=== PATIENT | female | born 1935 | race Hispanic/Latino ===

== ENCOUNTER 2018-10-17 14:19 | Inpatient (IN) | payer MEDICARE ==
--- NOTE | 2018-10-17 14:33 | Event Note ---
ED Screening Note ED Screening Note: pt presents with elevated BP pt states that her right eye has been closed for two weeks, she is unable to o pen it, she states that she just saw her PCP today pt states her head feels heavy, double vision PMHx of HTN, takes carvediolol and lisinopril took her medications this morning no CP, no SOB This initial assessment/diagnostic orders/clinical plan/treatment(s) is/are subject to change based on patients health status, clinical progression and re- assessment by fellow clinical providers in the ED. Further treatment and workup at subsequent clinical providers discretion. Patient/guardian urged not to elope from the ED as their condition may be serious if not clinically assessed and managed. Initial orders include: CT head, labs, EKG
[2018-10-17 15:21] LABS: Basophils # (Auto) 0.1 K/mm3 (0.0-0.1); Basophils % (Auto) 0.7 % (0.0-1.8); Eosinophils # (Auto) 0.3 K/mm3 (0.0-0.4); Eosinophils % (Auto) 2.5 % (0.0-4.3); Hematocrit 33.7 % (30.3-42.9); Hemoglobin 11.4 gm/dl (10.1-14.3); Lymphocytes # (Auto) 2.3 K/mm3 (1.2-5.4); Lymphocytes % (Auto) 22.3 % (13.4-35.0); Mean Corpuscular HGB Conc 34 % (30-34); Mean Corpuscular Volume 90 fl (79-97); Monocytes # (Auto) 0.9 K/mm3 (0.0-0.8); Monocytes % (Auto) 8.9 % (0.0-7.3); Platelet Count 296 K/mm3 (140-440); Red Blood Count 3.73 M/mm3 (3.65-5.03); Red Cell Distribution Width 14.8 % (13.2-15.2)
--- NOTE | 2018-10-17 15:28 | Cat Scan Report ---
CT head without contrast HISTORY: Stroke symptoms. Patient believes she had a stroke 10 days ago and right eye will not open TECHNIQUE: Axial imaging performed from the skull apex through the skull base without the use of con trast. All CT scans at this location are performed using CT dose reduction for ALARA by means of aut omated exposure control. COMPARISON: None FINDINGS: Parenchyma: No acute intracranial hemorrhage or parenchymal abnormality. Ventricles: There is mild diffuse brain atrophy with commensurate ventricular enlargement which is l ikely age appropriate. Soft tissues: Soft tissues including the orbits appear normal. Bones: No acute osseous abnormality. Sinuses: Sinuses and mastoid air cells are clear. IMPRESSION: No acute abnormality. Signer Name: Nilson Khan MD Signed: 10/17/2018 3:24 PM Workstation Name: [id number]
[2018-10-17 15:33] LABS: Creatine Kinase MB 1.7 ng/mL (0.0-4.0)
[2018-10-17 15:34] LABS: Partial Thromboplastin Time 29.1 Sec. (24.2-36.6)
[2018-10-17 15:35] LABS: Alanine Aminotransferase 7 units/L (7-56); Albumin 3.9 g/dL (3.9-5); BUN/Creatinine Ratio 21; Blood Urea Nitrogen 23 mg/dL (7-17); Calcium 9.3 mg/dL (8.4-10.2); Hemolysis Index 4
[2018-10-17 15:35] LABS: INR 1.07 (0.87-1.13); Thrombin Time 15.8 Sec. (15.1-19.6)
--- NOTE | 2018-10-17 16:24 | Emergency Department Report ---
ED Neuro Deficit HPI - General Chief Complaint: High BP Stated Complaint: POSS STROKE Time Seen by Provider: 10/17/18 14:29 Source: patient, family Mode of arrival: Wheelchair Limitations: Other - History of Present Illness Initial Comments: Patient is a 83 years old female with history of hypertension and congestive heart failure. Patient presented to the ER complaining of dizziness, right eye double vision for the last 10 days. Patient went to see her primary care physician Dr. Roach directed the patient to come to the emergency room for stroke workup and admission. Patient found to have a blood pressure of 201/98. - Related Data Home Medications: Home Medications Medication Instructions Recorded Confirmed Last Taken Furosemide [Lasix] 20 mg PO QDAY 09/20/17 09/20/17 Unknown Lisinopril [Zestril TAB] 40 mg PO QDAY 09/20/17 09/20/17 Unknown Previous Rx's Medication Instructions Recorded Last Taken Type Aspirin [Adult Low Dose Aspirin EC] 81 mg PO DAILY #30 tablet. 04/06/17 Unknown Rx AtorvaSTATin [Lipitor] 10 mg PO QHS #30 tablet 04/06/17 Unknown Rx Carvedilol [Coreg] 25 mg PO BID #60 tablet 04/06/17 Unknown Rx Allergies/Adverse Reactions: Allergies Allergy/AdvReac Type Severity Reaction Status Date / Time No Known Allergies Allergy Verified 10/17/18 14:20 ED Review of Systems ROS: Stated complaint: POSS STROKE Other details as noted in HPI Comment: All other systems reviewed and negative Constitutional: denies: chills, fever Eyes: vision change, other (double vision on the right side.) Respiratory: denies: cough Cardiovascular: denies: chest pain, palpitations Gastrointestinal: denies: abdominal pain, nausea, vomiting, diarrhea, constipation, hematemesis, melena, hematochezia Musculoskeletal: denies: back pain Skin: denies: rash Neurological: headache, abnormal gait. denies: weakness, numbness, paresthesias, confusion, vertigo ED Past Medical Hx - Past Medical History Hx Hypertension: Yes ([id number]) Hx CVA: Yes Hx Congestive Heart Failure: Yes Hx COPD: Yes Hx HIV: No Additional medical history: high cholestrol - Surgical History Hx Breast Surgery: Yes (Breast augmentation) Additional Surgical History: hemorriods. D&C - Social History Smoking Status: Never Smoker Substance Use Type: None - Medications Home Medications: Home Medications Medication Instructions Recorded Confirmed Last Taken Type Aspirin [Adult Low Dose Aspirin EC] 81 mg PO DAILY #30 tablet. 04/06/17 09/20/17 Unknown Rx AtorvaSTATin [Lipitor] 10 mg PO QHS #30 tablet 04/06/17 09/20/17 Unknown Rx Carvedilol [Coreg] 25 mg PO BID #60 tablet 04/06/17 09/20/17 Unknown Rx Furosemide [Lasix] 20 mg PO QDAY 09/20/17 09/20/17 Unknown History Lisinopril [Zestril TAB] 40 mg PO QDAY 09/20/17 09/20/17 Unknown History ED Neuro Physical Exam - General Limitations: Other General appearance: alert, in no apparent distress Suspected Stroke: Yes - Head Head exam: Present: atraumatic, normocephalic, normal inspection - Eye Eye exam: Present: other (right eye ptosis) - ENT ENT exam: Present: normal exam, normal orophraynx, mucous membranes moist - Neck Neck exam: Present: normal inspection, full ROM. Absent: tenderness, meningismus, lymphadenopathy, thyromegaly - Respiratory Respiratory exam: Present: normal lung sounds bilaterally - Cardiovascular Cardiovascular Exam: Present: regular rate, normal rhythm, normal heart sounds - GI/Abdominal GI/Abdominal exam: Present: soft, normal bowel sounds. Absent: distended, tenderness, guarding, rebound, rigid, organomegaly, mass, bruit, pulsatile mass, hernia - Extremities Exam Extremities exam: Present: normal inspection, full ROM, normal capillary refill. Absent: pedal edema, calf tenderness - Back Exam Back exam: Present: normal inspection, full ROM. Absent: CVA tenderness (R), CVA tenderness (L), muscle spasm, paraspinal tenderness, vertebral tenderness - Neurological Exam Neurological exam: Present: alert, oriented X3 - NIHSS Assessment Interval: Baseline 1a. Level of Consciousness: alert/keenly responsive 1b. LOC Questions: answers both correctly 1c. LOC Commands: performs tasks correctly 2. Best Gaze: normal 3. Visual: no visual loss 4. Facial Palsy: normal symmetrical movement 5b. Motor Arm Right: no drift 5a. Motor Arm Left: no drift 6a. Motor Leg Left: no drift 6b. Motor Leg Right: no drift 7. Limb Ataxia: absent 8. Sensory: normal 9. Best Language: no aphasia 10. Dysarthria: normal 11. Extinction/Inattention: no abnormality Total Score: 0 Stroke Severity: No Stroke Symptoms - Psychiatric Psychiatric exam: Present: normal mood - Skin Skin exam: Present: warm, intact, normal color ED Course Vital Signs 10/17/18 14:32 Temperature 98.8 F Pulse Rate 78 Respiratory 18 Rate Blood Pressure 201/88 O2 Sat by Pulse 98 Oximetry - Lab Data Result diagrams: 10/17/18 15:02 10/17/18 15:02 Lab Results 10/17/18 10/17/18 10/17/18 Range/Units 02:23 15:02 15:02 WBC 10.4 (4.5-11.0) K/mm3 RBC 3.73 (3.65-5.03) M/mm3 Hgb 11.4 (10.1-14.3) gm/dl Hct 33.7 (30.3-42.9) % MCV 90 (79-97) fl MCH 31 (28-32) pg MCHC 34 (30-34) % RDW 14.8 (13.2-15.2) % Plt Count 296 (140-440) K/mm3 Lymph % (Auto) 22.3 (13.4-35.0) % [place] % (Auto) 8.9 H (0.0-7.3) % Eos % (Auto) 2.5 (0.0-4.3) % Baso % (Auto) 0.7 (0.0-1.8) % Lymph # 2.3 (1.2-5.4) K/mm3 [place] # 0.9 H (0.0-0.8) K/mm3 Eos # 0.3 (0.0-0.4) K/mm3 Baso # 0.1 (0.0-0.1) K/mm3 Seg Neutrophils % 65.6 (40.0-70.0) % Seg Neutrophils # 6.8 (1.8-7.7) K/mm3 PT 13.6 (12.2-14.9) Sec. INR 1.07 (0.87-1.13) APTT 29.1 (24.2-36.6) Sec. Thrombin Time 15.8 (15.1-19.6) Sec. Sodium 138 (137-145) mmol/L Potassium 4.0 (3.6-5.0) mmol/L Chloride 102.5 (98-107) mmol/L Carbon Dioxide 24 (22-30) mmol/L Anion Gap 16 mmol/L BUN 23 H (7-17) mg/dL Creatinine 1.1 (0.7-1.2) mg/dL Estimated GFR 47 ml/min BUN/Creatinine Ratio 21 % Glucose 113 H (65-100) mg/dL Calcium 9.3 (8.4-10.2) mg/dL Total Bilirubin 0.40 (0.1-1.2) mg/dL AST 15 (5-40) units/L ALT 7 (7-56) units/L Alkaline Phosphatase 74 (35-129) units/L Total Creatine Kinase 39 (30-135) units/L CK-MB (CK-2) 1.7 (0.0-4.0) ng/mL CK-MB (CK-2) Rel Index 4.3 H (0-4) Troponin T < 0.010 (0.00-0.029) ng/mL Total Protein 6.9 (6.3-8.2) g/dL Albumin 3.9 (3.9-5) g/dL Albumin/Globulin Ratio 1.3 % - EKG Data -: EKG Interpreted by Me EKG shows normal: sinus rhythm Rate: normal Interpretation: no acute changes - Radiology Data Radiology results: report reviewed - Medical Decision Making Patient is a 83 years old female with history of hypertension and congestive heart failure. Patient presented to the ER complaining of dizziness, right eye double vision for the last 10 days. Patient went to see her primary care physician Dr. Roach directed the patient to come to the emergency room for stroke workup and admission. Patient found to have a blood pressure of 201/98. CT brain is negative for acute finding. I discussed the patient was , he agreed to admit the patient to his service for stroke workup and further management. Critical care attestation.: If time is entered above; I have spent that time in minutes in the direct care of this critically ill patient, excluding procedure time. ED Disposition Clinical Impression: CVA (cerebral vascular accident) Disposition: OP ADMIT IP TO THIS HOSP Is pt being admited?: Yes Condition: Stable
--- NOTE | 2018-10-17 17:03 | History and Physical Report ---
History of Present Illness Date of examination: 10/17/18 Date of admission: 10/17/18 Chief complaint: Double vision right eye for 10 days and unstable gait for 10 days History of present illness: Patient is an 83-year-old lady was a history of congestive failure and hypertension presented to the office today in company of the neighbor on account of having fullness in the head, slight dizziness with double vision on the right eye for 10 days. Her right upper eyelid is completely closed. Unable to open spontaneously. However whenever she might opens her upper eyelid she has double vision with some eye. She denies any slurred speech, facial droop or weakness of any extremities. In my office today blood pressure was 201/100. Admission to the hospital was requested for possible stroke. I asked the Emergency Department CT scan of the brain was unremarkable for any acute event. Past History Past Medical History: heart failure, hypertension Past Surgical History: No surgical history Social history: Lives alone. denies: smoking, alcohol abuse, prescription drug abuse Family history: hypertension Medications and Allergies Allergies Allergy/AdvReac Type Severity Reaction Status Date / Time No Known Allergies Allergy Verified 10/17/18 14:20 Home Medications Medication Instructions Recorded Confirmed Last Taken Type Aspirin [Adult Low Dose Aspirin EC] 81 mg PO DAILY #30 tablet. 04/06/17 10/17/18 09/28/18 Rx AtorvaSTATin [Lipitor] 10 mg PO QHS #30 tablet 04/06/17 10/17/18 10/17/18 Rx Carvedilol [Coreg] 25 mg PO BID #60 tablet 04/06/17 10/17/18 10/17/18 Rx Furosemide [Lasix] 20 mg PO QDAY 09/20/17 10/17/18 10/17/18 History Lisinopril [Zestril TAB] 40 mg PO QDAY 09/20/17 10/17/18 10/17/18 History Active Meds: Review of systems Constitutional: Well Nourished and Well developed. Head: NC/ AT Eyes: Denies any visual impairments. No discharge from the eyes Nose: Denies any rhinorrhea or epistaxis Throats: Denies any post nasal drainage. Ears: Denies any hearing deficits Cardiovascular system: Denies any chest pain, shortness of breath, orthopnea, paroxysmal nocturnal dyspnea, or palpitation. Respiratory system: Denies any cough, difficulty breathing, wheezing, pleuritic chest pain, Gastrointestinal system: Denies any abdominal pain, nausea vomiting, hematemesis or melena. Neurological system: Denies any headache, slurred speech, facial droop, late ralizing weakness Genitalia system: Denies any dysuria, urinary frequency or urgency, urethral discharge Skin: No rashes, hyperpigmented spots. Hematological: Denies any cervical tenderness hemorrhages or petechia. Immunological: Denies any multiple septic spots, Lymphatic: Denies any generalized lymphadenopathy. Endocrine: Denies any polyuria, polydipsia, polyphagia. No heat or cold in tolerance. Musculoskeletal system: No joint pain or swelling. Psych: No visual, tactile, auditory or hallucination Exam - Physical Exam Narrative exam: Constitutional: Well-nourished well-developed. In no distress Head: Normocephalic atraumatic Eyes: Pupils are equal round and reactive to light Nose: No enlarged turbinates, no septal deviation. Mouth: Moist mucous membranes. Neck: Supple no thyromegaly. No bruit. No JVD Heart: Regular rate and rhythm, S1-S2 normal. No rubs murmurs or gallop Lungs: Clear to auscultation bilaterally. no rales or rhonchi Abdomen: Soft, nontender. Bowel sound are present. Extremities: No edema, no cyanosis, no clubbing. Neuro: Alert oriented Oriented x3. Has dilated right pupils 5 mm, ptosis of the right. No weakness of the upper and lower extremities Skin: No rashes or hyperpigmented spots Musculoskeletal system: No joint pain or swelling Hematological: No petechia or subcutanous hemorrhages. Immunological: No multiple septic spots on the skin Lymphatic: No generalized lymphadenopathy Psychiatry: Euthymic. Calm. - Constitutional Vitals: Temp Pulse Resp BP Pulse Ox 98.8 F 78 18 201/88 98 10/17/18 14:32 10/17/18 14:32 10/17/18 14:32 10/17/18 14:32 10/17/18 14:32 Results - Labs CBC & Chem 7: 10/17/18 15:02 10/17/18 15:02 Labs: Abnormal lab results 10/17/18 10/17/18 Range/Units 15:02 15:02 [place] % (Auto) 8.9 H (0.0-7.3) % [place] # 0.9 H (0.0-0.8) K/mm3 BUN 23 H (7-17) mg/dL Glucose 113 H (65-100) mg/dL CK-MB (CK-2) Rel Index 4.3 H (0-4) Assessment and Plan - Acute ischemic stroke Admits to Med/Surg Initiate stroke protocol with aspirin, atorvastatin, PT/OT/ST evaluation and treatment Obtain MRI and MRA of the brain and the neck Echocardiogram. Last echo was on 06/23/2016 with EF of 25-30% - Diplopia and Ptosis right eye liley secondry to # 1 above - Unstable gait Likely secondary to ischemic stroke PT and OT Aspirin and atorvastatin -Malignant hypertension Judicious control - History of heart failure Continue with present home medication - DVT and GI prophylaxis with Lovenox and Pepcid
[2018-10-17] MEDS ORDERED: SODIUM CHLORIDE FLUSH SYRINGE 10 ML IV PRN (17:19)
[2018-10-17 18:05] LABS: Bilirubin,Urine NEG (Negative); Blood,Urine MOD (Negative); Color,Urine Yellow (Yellow); Mucus,Urine FEW /HPF; Urobilinogen,Urine < 2.0 mg/dL (<2.0)
[2018-10-17] MEDS ORDERED: ZESTRIL ONE (18:53)
[2018-10-17] MEDS: ZESTRIL PO SCH (18:55)
--- NOTE | 2018-10-17 19:02 | Magnetic Resonance Report ---
MRA HEAD WITHOUT CONTRAST HISTORY: Cerebrovascular accident. COMPARISON: none TECHNIQUE: Routine MRA of the head performed. 3-D/MIP reformats postprocessed. CONTRAST: none FINDINGS: MRA HEAD: OVERVIEW: There is no evidence of intracranial stenosis or large vessel occlusion. Intracranial vertebral arteries: No significant abnormality. Basilar artery: No significant abnormality. Posterior cerebral arteries: No significant abnormality. 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 On the left L3-4 millimeter aneurysm is suspected. On the right a 6 to 7 mm aneurysm is s uspected. This study is limited quality and follow-up with CTA head should be considered. No addition al aneurysms are identified. Anterior cerebral arteries: No significant abnormality. Middle cerebral arteries: No significant abnormality. Additional findings: Note is made of a large right posterior communicating artery versus origin of the P-comm. An anterior communicating artery is identified. Bilateral subdural hematomas are identified. These are different signal intensity and likely represen t subdural collections of different ages. Is refer to MRI brain report for further reduction of these bilateral subdurals. IMPRESSION: 1. 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 Confirmation with CTA head is suggested. 2. Bilateral subdural hematomas. Please refer to MRI brain report for further description of these fi ndings. Signer Name: Stuart Lopez MD Signed: 10/17/2018 6:58 PM Workstation Name: [id number]
--- NOTE | 2018-10-17 19:06 | Magnetic Resonance Report ---
MR brain wo con INDICATION / CLINICAL INFORMATION: 83 years Female; stroke. TECHNIQUE: Multiplanar, multisequence MR images of the brain were obtained. COMPARISON: CT - 10/17/2018 FINDINGS: BRAIN / INTRACRANIAL CONTENTS: Small, bilateral, late subacute to chronic subdural collections seen. There is minimal mass effect present. No significant midline shift. No signs of acute hemorrhage appr eciated. Maximum thickness of the collections is on the right, adjacent to the frontoparietal region, measuring approximately 7 mm. These findings are very difficult to visualize on recent CT scan. Mild to moderate cerebral and cerebellar atrophy. There are minimal areas of increased signal intensity on FLAIR imaging in the white matter of the cer ebral hemispheres. These are nonspecific findings and may be related to microangiopathy (hypertension , diabetes, atherosclerosis), given the patient's age. Otherwise, no acute ischemia, acute hemorrhage, or hydrocephalus. Punctate focus of decreased gradient echo T2 signal intensity seen in the inferior frontal gyral rebekah on on the left-small cavernous malformation or focus of amyloid angiopathy might be a consideration. No other similar findings appreciated. CRANIOCERVICAL JUNCTION: No significant abnormality. VASCULAR FLOW-VOIDS: No significant abnormality. ORBITS: No significant abnormality of visualized orbits. SINUSES / MASTOIDS: Mild to moderate mucosal thickening in the ethmoids and mastoids. ADDITIONAL FINDINGS: None. IMPRESSION: 1. Small, bilateral, subacute to chronic subdural collection seen without significant mass effect pre sent. Follow-up is recommended to ensure resolution of these findings. 2. Otherwise, no focal mass, acute hemorrhage, hydrocephalus, or acute, large infarct identified. Signer Name: Judson Garcia MD, III Signed: 10/17/2018 7:02 PM Workstation Name: [id number]
[2018-10-17] MEDS: COREG PO SCH (21:03)
[2018-10-17] MEDS ORDERED: TYLENOL PO PRN (21:11)
[2018-10-18] MEDS ORDERED: ALUM-MAG HYDROX-SIMETH 200-200-20MG/5ML PO PRN (05:43)
[2018-10-18] MEDS ORDERED: SENOKOT PO PRN (05:44)
[2018-10-18] MEDS ORDERED: MIRALAX 3350 PO PRN (05:47)
[2018-10-18 05:54] LABS: Chol/HDL Ratio 2.36 %
--- NOTE | 2018-10-18 09:53 | Progress Note ---
Assessment and Plan - Small rob Subacute subdural hematoma MRI showed 1. Small, bilateral, subacute to chronic subdural collection seen without significant mass effect present. Follow-up is recommended to ensure resolution of these findings. 2. Otherwise, no focal mass, acute hemorrhage, hydrocephalus, or acute, large infarct identified. Avoid all anticoagulation Continue PT/OT/ST evaluation and treatment Echocardiogram report Pending. Last ECHOo was on 06/23/2016 with EF of 25-30% Neurology consulted. Not significant for neurosurgical involvement - Diplopia and Ptosis right eye likely secondary to # 1 above - Unstable gait Likely secondary to subacute subdural hematoma PT and OT -Malignant hypertension Judicious control - History of heart failure Continue with present home medication - DVT and GI prophylaxis with SCD and Pepcid Subjective Date of service: 10/18/18 Principal diagnosis: Subacute Subdural Interval history: No new complaint Objective - Exam Narrative Exam: Constitutional: Well-nourished well-developed. In no distress Head: Normocephalic atraumatic Eyes: Pupils are equal round and reactive to light Nose: No enlarged turbinates, no septal deviation. Mouth: Moist mucous membranes. Neck: Supple no thyromegaly. No bruit. No JVD Heart: Regular rate and rhythm, S1-S2 normal. No rubs murmurs or gallop Lungs: Clear to auscultation bilaterally. no rales or rhonchi Abdomen: Soft, nontender. Bowel sound are present. Extremities: No edema, no cyanosis, no clubbing. Neuro: Alert oriented Oriented x3. Has dilated right pupils 5 mm, ptosis of the right. No weakness of the upper and lower extremities Skin: No rashes or hyperpigmented spots Musculoskeletal system: No joint pain or swelling Hematological: No petechia or subcutanous hemorrhages. Immunological: No multiple septic spots on the skin Lymphatic: No generalized lymphadenopathy Psychiatry: Euthymic. Calm. - Constitutional Vitals: Vital Signs - 12hr 10/17/18 10/17/18 10/17/18 21:58 22:53 22:54 Temperature 97.6 F Pulse Rate 60 Respiratory 18 Rate Blood Pressure 187/88 151/61 O2 Sat by Pulse 98 96 Oximetry 10/18/18 10/18/18 10/18/18 00:00 04:49 04:51 Temperature 98.6 F Pulse Rate 62 68 Respiratory 16 Rate Blood Pressure 131/60 O2 Sat by Pulse 98 Oximetry - Labs CBC & Chem 7: 10/17/18 15:02 10/17/18 15:02 Labs: Abnormal lab results 10/17/18 10/17/18 10/17/18 Range/Units 15:02 15:02 17:30 [place] % (Auto) 8.9 H (0.0-7.3) % [place] # 0.9 H (0.0-0.8) K/mm3 BUN 23 H (7-17) mg/dL Glucose 113 H (65-100) mg/dL CK-MB (CK-2) Rel Index 4.3 H (0-4) HDL Cholesterol (40-59) mg/dL Urine WBC (Auto) 46.0 H (0.0-6.0) /HPF U Epithel Cells (Auto) 57.0 H (0-13.0) /HPF 10/18/18 Range/Units 04:51 [place] % (Auto) (0.0-7.3) % [place] # (0.0-0.8) K/mm3 BUN (7-17) mg/dL Glucose (65-100) mg/dL CK-MB (CK-2) Rel Index (0-4) HDL Cholesterol 82 H (40-59) mg/dL Urine WBC (Auto) (0.0-6.0) /HPF U Epithel Cells (Auto) (0-13.0) /HPF
[2018-10-18] MEDS ORDERED: LASIX PO SCH (10:00)
[2018-10-18] MEDS ORDERED: ASPIRIN PO SCH (10:00)
[2018-10-18] MEDS ORDERED: LEVAQUIN PO SCH ×2 (11:00→12:00)
[2018-10-18] MEDS: ZESTRIL PO SCH (11:03)
[2018-10-18] MEDS: COREG PO SCH ×2 (11:04→21:56)
[2018-10-18] MEDS ORDERED: FLEET PR ONE (17:00)
--- NOTE | 2018-10-18 19:59 | Consultation ---
History of Present Illness Consult date: 10/18/18 Chief complaint: ptosis, opthalmoplegia History of present illness: This is an 83 YO F who was admitted form her physicians office with ptosis and dipopia. Pt says she was sitting at her computer 2 days ago and felt a thump in her head. She felt like she had had a stroke. She saw her MD who sent her here. Pt has had MRI Brain and MRA head that shows bilateral P-Comm aneurysms, largest on the right which is where her symptoms are. Past History Past Medical History: heart failure, hypertension Past Surgical History: No surgical history Social history: Lives alone. denies: smoking, alcohol abuse, prescription drug abuse Family history: hypertension Medications and Allergies Allergies Allergy/AdvReac Type Severity Reaction Status Date / Time No Known Allergies Allergy Verified 10/17/18 14:20 Home Medications Medication Instructions Recorded Confirmed Last Taken Type Aspirin [Adult Low Dose Aspirin EC] 81 mg PO DAILY #30 tablet. 04/06/17 10/17/18 09/28/18 Rx AtorvaSTATin [Lipitor] 10 mg PO QHS #30 tablet 04/06/17 10/17/18 10/17/18 Rx Carvedilol [Coreg] 25 mg PO BID #60 tablet 04/06/17 10/17/18 10/17/18 Rx Furosemide [Lasix] 20 mg PO QDAY 09/20/17 10/17/18 10/17/18 History Lisinopril [Zestril TAB] 40 mg PO QDAY 09/20/17 10/17/18 10/17/18 History Active Meds: Active Medications Acetaminophen (Tylenol) 650 mg PO Q4H PRN PRN Reason: Pain, Mild (1-3) Last Admin: 10/17/18 22:29 Dose: 650 mg Documented by: Aspirin (Aspirin) 325 mg PO QDAY [facility] Last Admin: 10/18/18 11:03 Dose: 325 mg Documented by: Atorvastatin Calcium (Lipitor) 40 mg PO QHS [facility] Last Admin: 10/17/18 21:03 Dose: 40 mg Documented by: Carvedilol (Coreg) 25 mg PO BID [facility] Last Admin: 10/18/18 11:04 Dose: 25 mg Documented by: Furosemide (Lasix) 20 mg PO QDAY [facility] Last Admin: 10/18/18 11:03 Dose: 20 mg Documented by: Levofloxacin (Levaquin) 500 mg PO Q48H [facility] Last Admin: 10/18/18 11:03 Dose: 500 mg Documented by: Lisinopril (Zestril) 40 mg PO QDAY [facility] Last Admin: 10/18/18 11:03 Dose: 40 mg Documented by: Polyethylene Glycol (Miralax [id number]) 17 gm PO QDAY PRN PRN Reason: Constipation Senna (Senokot) 17.2 mg PO QHS PRN PRN Reason: Constipation Last Admin: 10/18/18 11:04 Dose: 17.2 mg Documented by: Sodium Chloride (Sodium Chloride Flush Syringe 10 Ml) 10 ml IV PRN PRN PRN Reason: LINE FLUSH Physical Examination - Vital Signs Vital Signs: Vital Signs Temp Pulse Resp BP Pulse Ox 98.8 F 78 18 201/88 98 10/17/18 14:32 10/17/18 14:32 10/17/18 14:32 10/17/18 14:32 10/17/18 14:32 - EENT EENT: Present: mucous membranes moist - Respiratory Respiratory: Present: lungs clear, normal breath sounds - Cardiovascular Cardiovascular: Present: regular rate Extremities: Present: no peripheral edema bilatateraly - Gastrointestinal Gastrointestinal: Present: normoactive bowel sounds - Neurologic Cranial nerve examination: V1/V2/V3 grossly intact, face symmetric, tongue midline, other (blown pupil on the right, right eye only moves outward, lid will not lift) Motor examination - right side: 5/5: biceps, triceps, wrist flexion, wrist e xtension, nurse assessor, hip flexors, knee extensors, dorsiflexion, toe extension (EHL), plantarflexion Motor examination - left side: 5/5: biceps, triceps, wrist flexion, wrist extens ion, nurse assessor, hip flexors, knee extensors, dorsiflexion, toe extension (EHL), plantarflexion Results - Laboratory Findings CBC and BMP: 10/17/18 15:02 10/17/18 15:02 Abnormal Lab Findings: Abnormal Labs 10/17/18 10/17/18 10/17/18 15:02 15:02 17:30 Morton % (Auto) 8.9 H Morton # 0.9 H BUN 23 H Glucose 113 H CK-MB (CK-2) Rel Index 4.3 H HDL Cholesterol Urine WBC (Auto) 46.0 H U Epithel Cells (Auto) 57.0 H 10/18/18 04:51 Morton % (Auto) Morton # BUN Glucose CK-MB (CK-2) Rel Index HDL Cholesterol 82 H Urine WBC (Auto) U Epithel Cells (Auto) - Diagnostic Findings Additional findings: MRA bilateral PCOMM aneurysms 6-7 mm, left 3-4 mm Assessment and Plan This is an 83 YO F with bilateral P COMM aneurysms, largest on the right and symptomatic. Recommend: Spoke to Dr. Costello- he will initiate transfer and I am available to speak to the neurosurgeon if needed- should try [place] or [place]. Pt needs [facility] transfer Keep BP 120 -140 systolic Analgesics PRN headache q2 neuro checks
[2018-10-18] MEDS ORDERED: APRESOLINE PO ONE (21:47)
--- NOTE | 2018-10-18 21:48 | Discharge Summary ---
Providers - Providers Date of Admission: 10/17/18 16:53 Date of discharge: 10/18/18 Attending physician: KOKO CARLOS 10/17/18 17:25 Occupational Therapy Evaluate and Treat [CONS] Routine Comment: Reason For Exam: Neuro deficits Physical Therapy Evaluation and Treat [CONS] Routine Comment: Reason For Exam: Neuro deficits 10/17/18 17:28 Consult to Physician [CONS] Routine Comment: Consulting Provider: ANITA GRAY Physician Instructions: Reason For Exam: sudden diplopia and and right ptosis 10/17/18 17:31 Physical Therapy Evaluation and Treat [CONS] Routine Comment: ptosis and diplopia Reason For Exam: stroke Primary care physician: KOKO CARLOS Hospitalization Reason for admission: Subdural hematoma Condition: Stable Pertinent studies: MRI and MRA of the brain CT head Procedures: none Hospital course: Patient is an 83-year-old lady was a history of congestive failure and hypertension presented to the office today in company of the neighbor on account of having fullness in the head, slight dizziness with double vision on the right eye for 10 days. Her right upper eyelid is completely closed. Unable to open spontaneously. However whenever she physically opens her upper eyelid she has double vision with same eye. She denies any slurred speech, facial droop or weakness of any extremities. In my office today blood pressure was 201/100. Admission to the hospital was requested for possible stroke. In the Emergency Department CT scan of the brain was unremarkable for any acute event. MRI and MRA of the brain were ordered. MRI report showed Small, bilateral, subacute hematoma without significant mass effect. MRA showed the presence of bilateral posterior communicating artery aneurysms with the right measuring 6-7mm and the left 3-4mm. BP was controlled at 140-150s. Neurological consult was obtained. She was of the view that the pt has mildly bleeding aneurysm responsible for the subdural hematoma. She recommended transfer to [facility]. Called [facility] transfer line contacted and spoke with Neurosurgeon and and critical care MD. Patient was accepted to the service of Neurosurgeon Dr. Hunter. Pt is therefore being transferred. Will continue to maintain SBP below 140 mmHg and avoid all anticoagulation of antiplatelets. Disposition: [id number]/TX-70 ANOTHER TYPE HLTHCARE Time spent for discharge: 40 mins - Discharge Diagnoses (1) Subdural hemorrhage after traumatic injury without open intracranial wound, with prolonged loss of consciousness and return to pre-existing level of consciousness Status: Acute (2) Cerebral aneurysm Status: Acute (3) Ptosis Status: Acute (4) Diplopia Status: Acute (5) UTI (urinary tract infection) Status: Acute (6) Unable to ambulate Status: Acute Core Measure Documentation - Palliative Care Palliative Care/ Comfort Measures: Not Applicable - Core Measures Any of the following diagnoses?: none Exam - Physical Exam Narrative exam: Constitutional: Well-nourished well-developed. In no distress Head: Normocephalic atraumatic Eyes: Ptosis right eye with right dilated 4mm pupil. Nose: No enlarged turbinates, no septal deviation. Mouth: Moist mucous membranes. Neck: Supple no thyromegaly. No bruit. No JVD Heart: Regular rate and rhythm, S1-S2 normal. No rubs murmurs or gallop Lungs: Clear to auscultation bilaterally. no rales or rhonchi Abdomen: Soft, nontender. Bowel sound are present. Extremities: No edema, no cyanosis, no clubbing. Neuro: Alert oriented Oriented x3. Has dilated right pupils 5 mm, ptosis of the right. No weakness of the upper and lower extremities Skin: No rashes or hyperpigmented spots Musculoskeletal system: No joint pain or swelling Hematological: No petechia or subcutanous hemorrhages. Immunological: No multiple septic spots on the skin Lymphatic: No generalized lymphadenopathy Psychiatry: Euthymic. Calm. - Constitutional Vitals: Temp Pulse Resp BP Pulse Ox 98.9 F 80 20 157/87 97 10/18/18 20:48 10/18/18 20:44 10/18/18 20:44 10/18/18 20:44 10/18/18 20:44 Plan Activity: fall precautions Weight Bearing Status: Weight Bear as Tolerated Diet: regular, low cholesterol Follow up with: KOKO CARLOS MD [Primary Care Provider] - 7 Days Prescriptions: hydrALAZINE [Apresoline TAB] 50 mg PO Q8HR #90 tab Carvedilol [Coreg] 25 mg PO BID #60 tablet levoFLOXacin [Levaquin TAB] 500 mg PO Q48H #5 tablet
[2018-10-19 00:14] VITALS: BP 141/63
== END 2018-10-19 02:33 | disposition short-term general hospital (02) | DRG 83 ==
LOC: ED 14:19 → 4A 16:53
PROVIDERS: ADMIT Family Medicine; ATTEND Family Medicine
DX: S06.5X9A Traumatic subdural hemorrhage with loss of consciousness of unspecified duration, initial encounter (principal); N39.0 Urinary tract infection, site not specified; H53.2 Diplopia; R26.81 Unsteadiness on feet; I50.9 Heart failure, unspecified; I11.0 Hypertensive heart disease with heart failure; H02.409 Unspecified ptosis of unspecified eyelid; Z66 Do not resuscitate; J44.9 Chronic obstructive pulmonary disease, unspecified; Z82.49 Family history of ischemic heart disease and other diseases of the circulatory system; Z79.82 Long term (current) use of aspirin; Z79.899 Other long term (current) drug therapy; Y93.89 Activity, other specified; Y92.89 Other specified places as the place of occurrence of the external cause; Y99.8 Other external cause status
CPT/HCPCS: 36415; 70450; 70544; 70551; 80053; 80061; 81001; 82550; 82553; 84484; 85025; 85610; 85670; 85730; 87086; 93005; 93010; 93306; 99406; G0378; A9270-GY